=== PATIENT | male | born 1945 | race Caucasian/White ===

== ENCOUNTER 2021-02-23 16:03 | Emergency (ER) | payer MEDICARE, SELFPAY ==
[2021-02-23 16:04] VITALS: BP 151/98; PULSE 93; RESP 18; TEMP 36.7; O2SAT 97; BMI 29.7
--- NOTE | 2021-02-23 16:18 | XR_ITS ---
PROCEDURE: XR HAND RT MIN 3V CLINICAL INDICATION: LACERATION COMPARISON: No exams were available for comparison FINDINGS: No fracture or dislocation. No lytic or blastic change. There is normal mineralization. 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 Subchondral cystic changes involve the distal aspect of the middle phalanx of the 3rd digit. A small defect is also present in the distal and lateral aspect of the middle phalanx of the 4th digit and could be due to marginal erosion. Possible marginal erosion involves the distal aspect of proximal phalanx of thumb. Other findings:None. IMPRESSION: Degenerative changes as described above, no acute fracture. Dictated by: Bob Birmingham MD 02/23/2021 16:35 Bob Birmingham MD in [place] 02/23/2021 16:35
[2021-02-23 16:20] VITALS: BP 151/98; PULSE 93; RESP 18; TEMP 36.7; O2SAT 97; BMI 29.5
--- NOTE | 2021-02-23 16:46 | HMH.EDUTC ---
[facility] [place] Clinical Impression: Laceration Disposition: Home, Self-Care Condition on Discharge: Good Instructions: How to Care for a Laceration After Repair, DI for Laceration Repair, DI for Laceration Repair -- Simple Additional Instructions: Suture instructions: You have required stitches today. Please read the following instructions so you know how to care for them: 1. Keep wound area dry for the first 24 hours. 2 May clean gently with mild soap and water, after 48 hours to prevent crusting over suture knots. 3. You may shower if your provider gives permission but do not take a bath until the skin is healed.. 4. Never leave a wet dressing or Band-Aid on your stitches as this allows bacteria to reach the area and may cause infection. Band-aids can cause the wound to sweat and not recommended to wear for long periods of time Watch for signs of infection: Increasing redness, tenderness or warmth around the suture site Unusual swelling around the site Appearance of pus around each suture or any red streaks Fever If you develop any of the above signs or symptoms of infection, Follow up with Family Physician immediately 5. Suture removal in _10-14___days 6. Return to [facility] or follow up with family doctor for removal. This can be done by any medical provider during regular hours on Sunday through Sunday, by appointment. Prescriptions: Amoxicillin/Potassium Clav [Augmentin 500mg tab] 1 tab PO BID 5 Days #10 tab Prescription Printed Referrals: Florence Garcia [Primary Care Provider] - As needed Time of Disposition: 17:34 Medical Decision Making - Rodney Inquiry Pt receiving controlled substance: No Rodney was queried for this patient: No Vital Signs: 02/23/21 16:04 02/23/21 16:20 02/23/21 17:46 Temperature 98.0 F 98.0 F 98.0 F Temperature Source Oral Oral Pulse Rate 93 H Pulse Rate [Right] 93 H 93 H Respiratory Rate 18 18 18 Blood Pressure 151/98 H Blood Pressure [Right Arm] 151/98 H 151/98 H Blood Pressure Mean [Right Arm] 115 115 Blood Pressure Source [Right Arm] Automatic Cuff Blood Pressure Position [Right Arm] Sitting 02 Sat by Pulse Oximetry 97 97 Oxygen Delivery Method Room Air Room Air - Radiology Data #1 Image(s): Hand Image Reviewed: Yes I have reviewed radiologist's interpretation IMPRESSION: Degenerative changes as described above, no acute fracture. [facility] [place] HPI - General Stated complaint: a/o 02/23 1530 right middle finger laceration Time Seen by Provider: 02/23/21 16:46 Mode of Arrival: Ambulatory Source of Information: Patient Limitations: No Limitations Description of Symptoms (Recalled from Triage Doc. by RN): PATIENT C/O RIGHT HAND LACERATION MIDDLE DIGIT. BLEEDING CONTROLLED UPON ARRIVAL. 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 PT REPORTS HE HAD A TETANUS SHOT TWO YEARS AGO. HEENT Symptoms (Recalled from RN notes): No Resp Symptoms (Recalled from RN notes): No Skin Symptoms (Recalled from RN notes): Yes MS Symptoms (Recalled from RN notes): No Functional Status (Recalled from RN notes): WNL - History of Present Illness Provider Complaint: Patient state that he was using a grinder operator automatic and it slipped and hit him in the knuckle in the right middle finger causing laceration State that he is able to move and bend the finger and denies numbness and tingling in finger. able to bend and straighten finger States that he had a tetanus about 2 yrs ago - Related Data Previous Rx's Medication Instructions Recorded Amoxicillin/Potassium Clav 1 tab PO BID 5 Days #10 tab 02/23/21 [Augmentin 500mg tab] Allergies Allergy/AdvReac Type Severity Reaction Status Date / Time No Known Allergies Allergy Unverified 09/25/17 14:46 - Worker's Comp Is this a Worker's Comp case?: No [facility] History - Hepatitis A Screen Drug use history?: No High risk sexual behaviors?: No History of sexually transmitted infection?: No Currently employed
[2021-02-23 17:46] VITALS: BP 151/98; PULSE 93; RESP 18; TEMP 36.7; O2SAT 97
== END 2021-02-23 17:50 | disposition home or self-care (01) ==
PROVIDERS: Emergency Provider Nurse Practitioner; PCP Family Medicine
DX: S61.212A Laceration without foreign body of right middle finger without damage to nail, initial encounter (principal); W31.89XA Contact with other specified machinery, initial encounter; Y92.018 Other place in single-family (private) house as the place of occurrence of the external cause
CPT/HCPCS: 12002; G0463; 73130; 99202

== ENCOUNTER 2021-03-10 13:54 | Emergency (ER) | payer MEDICARE, SELFPAY ==
[2021-03-10 14:00] VITALS: BP 146/84; PULSE 102; RESP 18; TEMP 36.7; O2SAT 98; BMI 25.0
[2021-03-10 14:05] VITALS: BP 146/84; PULSE 102; RESP 18; TEMP 36.7; O2SAT 98
== END 2021-03-10 14:07 | disposition home or self-care (01) ==
LOC: UTC 13:57
DX: S61.212D Laceration without foreign body of right middle finger without damage to nail, subsequent encounter (principal)

== ENCOUNTER 2022-05-17 19:43 | Emergency (ER) | payer MEDICARE, SELFPAY ==
[2022-05-17 21:01] VITALS: BP 147/95; PULSE 74; RESP 18; TEMP 36.8; O2SAT 97; BMI 27.4
--- NOTE | 2022-05-17 21:21 | HMH.EDEYEP ---
ED Disposition Clinical Impression: Corneal FB (foreign body) Qualifiers: Encounter type: initial encounter Laterality: left Qualified Code(s): T15.02XA - Foreign body in cornea, left eye, initial encounter Disposition: Home, Self-Care Condition on Discharge: Good Instructions: DI for Corneal Foreign Body-Eye Additional Instructions: use meds and call eye center in am [phone] Referrals: Florence Garcia [Primary Care Provider] - - Critical Care Critical Care Time: No Attestation: On 05/17/22, the high probability of a clinically significant, sudden or life threatening deterioration of the following system(s) required my full and direct attention, intervention and personal management. The time I documented below is in addition to time spent performing reported procedures but includes the following listed in this critical care notation. Medical Decision Making - Medical Records Medical records reviewed: Yes: I reviewed the patient's medical records. - Rodney Inquiry Pt receiving controlled substance: No Vital Signs: 05/17/22 21:01 Temperature 98.2 F Temperature Source Oral Pulse Rate [Apical] 74 Respiratory Rate 18 Blood Pressure [Right Arm] 147/95 H Blood Pressure Mean [Right Arm] 112 Blood Pressure Source [Right Arm] Automatic Cuff Blood Pressure Position [Right Arm] Sitting 02 Sat by Pulse Oximetry 97 Oxygen Delivery Method Room Air Medical Decision Narrative: has fb and partially removed but has rust ring Eye Problem HPI - General Chief complaint: Eye Problems Stated complaint: AO 05/17@1630@home fb L eye Time Seen by Provider: 05/17/22 21:21 Mode of Arrival: Ambulatory Source of Information: Patient, Medical Record Limitations: No Limitations Description of Symptoms (Recalled from ER Triage Doc. by RN): Per pt, at approx 1630 he was grinding a bolt while working on his truck when he got a foreign object into his left eye. States that it feels as though there is a piece of metal under his eye lid. States that his eye does not hurt when it is open, only hurts when he blinks. Pt states last tetanus was 1 year ago. - History of Present Illness HPI Narrative: fb sensation lt eye after grinding at home - tetanus ok - MD chief complaint: foreign body Onset (ago): hour(s) Location: left eye Eye Symptoms: foreign body sensation Place: home Mechanism: occurred while hammering/grinding Severity: moderate Associated symptoms: none Treatments Prior to Arrival: none - Related Data Patient tetanus UTD: Yes Previous Rx's Medication Instructions Recorded Amoxicillin/Potassium Clav 1 tab PO BID 5 Days #10 tab 02/23/21 [Augmentin 500mg tab] Allergies Allergy/AdvReac Type Severity Reaction Status Date / Time No Known Allergies Allergy Unverified 09/25/17 14:46 [facility] History - Hepatitis A Screen Attestation statement:: This patient has been screened for Hepatitis A risk factors. I have reviewed the patient's past medical history: Yes - Social History Alcohol Intake: never Occupational Status: other ROS Obtained: Yes All systems reviewed & no additional complaints - Constitutional Constitutional: Denies fever(s) - Eyes Eyes: Reports as per HPI, Denies eye discharge, Denies loss of peripheral vision, Reports sensitivity to light, Denies photophobia - ENT Ears, Nose, Mouth, and Throat: Denies otalgia - Cardiovascular Cardiovascular: Denies chest pain - Respiratory Respiratory: Denies shortness of breath - Gastrointestinal Gastrointestingal: Denies: abdominal pain - Genitourinary Male Genitourinary: Denies hematuria - Musculoskeletal Musculoskeletal: Denies joint pain - Integumentary/Breasts Skin/Breast: Denies rash - Neurologic Neurologic: Denies headache(s), Denies seizure-like activity Physical Exam - General General appearance: alert - Head Head exam: normocephalic - Eye Eye exam: Present: PERRL, EOMI, other (fb lt eye - no
[2022-05-17 21:33] VITALS: BP 145/95; PULSE 72; RESP 18; TEMP 36.8; O2SAT 99
== END 2022-05-17 21:34 | disposition home or self-care (01) ==
PROVIDERS: Emergency Provider Emergency Medicine; PCP Family Medicine
DX: T15.02XA Foreign body in cornea, left eye, initial encounter (principal)
CPT/HCPCS: 99283

== ENCOUNTER 2024-11-06 10:36 | Emergency (ER) | payer MEDICARE, SELFPAY ==
--- NOTE | 2024-11-06 11:17 | ED_ITS ---
Discharge Plan Disposition Patient Disposition: Home, Self-Care Condition: Good Prescriptions Prescriptions: New azithromycin [Zithromax] 250 mg tablet 250 mg PO UD DOSE PK Qty: 6 0RF Rx Instructions: Take two (2) tablets today, then one (1) tablet days #2 thru #5 benzonatate 100 mg capsule 100 mg PO TIDP PRN (Reason: Cough) Qty: 30 0RF methylprednisolone 4 mg Tablets,Dose Pack 4 mg PO DIRECTED 6 Days Qty: 21 0RF Rx Instructions: Take 1 pack as directed for 6 days oseltamivir [Tamiflu] 75 mg capsule 75 mg PO BID 5 Days Qty: 10 0RF No Action levothyroxine 88 mcg Tablet 88 mcg PO DAILY tamsulosin 0.4 mg Capsule 0.4 mg PO DAILY omeprazole 20 mg Capsule,Delayed Release(Dr/Ec) 20 mg PO BID amlodipine-benazepril 10-40 mg Capsule 1 cap PO DAILY Referrals Follow up/Referrals: Florence Garcia [Primary Care Provider] - See instructions Activity Restrictions/Add. Instructions Additional Instructions/Restrictions: Drink plenty of fluids. Take tylenol or ibuprofen for pain or fever. Take the medications as directed. Follow up with your regular doctor. GO TO THE ER FOR ANY WORSENING SYMPTOMS Clinical Impressions Clinical Impression: Acute bronchitis, Acute sinusitis, Influenza A Instructions Patient Instructions: Sinusitis, DI for Sinusitis Print Language Print Language: Estonian Discharge ED Provider: Jayjay Chamberlain [facility] [place] General Stated complaint: cough, chills, fever Time Seen by Provider: 11/06/24 11:11 Related Data Home Medications ?Medication ?Instructions ?Recorded ?Confirmed amlodipine 10 mg-benazepril 40 mg 1 cap PO DAILY 11/06/24 11/06/24 capsule levothyroxine 88 mcg tablet 88 mcg PO DAILY 11/06/24 11/06/24 omeprazole 20 mg capsule,delayed 20 mg PO BID 11/06/24 11/06/24 release tamsulosin 0.4 mg capsule 0.4 mg PO DAILY 11/06/24 11/06/24 Previous Rx's ?Medication ?Instructions ?Recorded azithromycin 250 mg tablet 250 mg PO UD DOSE PK #6 tabs 11/06/24 (Zithromax) benzonatate 100 mg capsule 100 mg PO TIDP PRN Cough #30 caps 11/06/24 methylprednisolone 4 mg tablets in 4 mg PO DIRECTED 6 days #21 tabs 11/06/24 a dose pack oseltamivir 75 mg capsule (Tamiflu) 75 mg PO BID 5 days #10 caps 11/06/24 Allergies Allergy/AdvReac Type Severity Reaction Status Date / Time No Known Allergies Allergy Unverified 09/25/17 14:46 [facility] Disclaimer: The information contained in this section may have been updated after the patient was seen, as this information can be updated by other users. Social History Smoking Status: Never smoker alcohol intake: never current occupational status: other Travel in the last 8 weeks: None ROS Obtained: Yes All systems reviewed & no additional complaints except as documented Constitutional Constitutional: Reports chills and Reports fever(s) Eyes Eyes: Denies eye discharge ENT Ears, Nose, Mouth, and Throat: Reports as per HPI Cardiovascular Cardiovascular: Denies chest pain Respiratory Respiratory: Denies chest congestion and Reports cough Gastrointestinal Gastrointestingal: Reports nausea; Denies abdominal pain, constipation, cramping, diarrhea or vomiting Musculoskeletal Musculoskeletal: Denies arthralgias Integumentary/Breasts Skin/Breast: Denies rash Neurologic Neurologic: Denies paresthesias Physical Exam General General appearance: alert and in no apparent distress Head Head exam: atraumatic, normocephalic and normal inspection Eye Eye exam: Present normal appearance, PERRL and EOMI ENT ENT exam: Present mucous membranes moist and normal external ear exam Expanded ENT Exam TM/Canal exam: Bilateral TM: erythema and bulging Nose exam: Absent sinus tenderness Mouth exam: Present normal external inspection; Absent drooling Teeth exam: Present normal inspection Throat exam: Present tonsillar erythema, tonsillomegaly and tonsillar exudate Neck Neck exam: Present normal inspection, full ROM and trachea midline; Absent tenderness, meningismus or lymphadenopathy Chest Chest inspection: Present normal inspection and symmetric chest wall rise; Absent tenderness Respiratory Respiratory exam: Present normal lung sounds bilaterally; Absent respiratory distress, wheezes, stridor or accessory muscle use Cardiovascular Cardiovascular exam: Present regular rate and normal rhythm; Absent systolic murmur or diastolic murmur Abdominal Exam Abdominal exam: Present soft and normal bowel sounds; Absent distention, tenderness, guarding, rebound or rigidity Extremities Exam Extremities exam: Present normal inspection and normal capillary refill; Absent calf tenderness Back Exam Back exam: Present normal inspection and full ROM; Absent tenderness, CVA tenderness (R) or CVA tenderness (L) Neurological Exam Neurological exam: Present alert, oriented X3 and CN II-XII intact Psychiatric Psychiatric exam: Present normal affect and normal mood Skin Skin exam: Present warm, dry, intact and normal color Medical Decision Making Medical Records Medical records reviewed: No I reviewed the patient's medical records. Screening: Per USPSTF and CDC recommendations, given the prevalence of disease in our region, it is our hospital?s policy to screen for HIV and viral Hepatitis for all patients aged 18 and over and those with ongoing risk factors. Rodney Inquiry Pt receiving controlled substance: No Lab Data Lab results reviewed: Yes I reviewed the patient's lab results.
[2024-11-06 11:20] LABS: UTC Influenza A Antigen Negative (Negative); UTC Influenza B Antigen Negative (Negative)
[2024-11-06 11:21] VITALS: BP 156/82; PULSE 121; RESP 18; TEMP 37.1; O2SAT 95; BMI 29.7
--- NOTE | 2024-11-06 11:22 | XR_ITS ---
FINAL REPORT TECHNIQUE: Chest PA & Lateral CLINICAL HISTORY: Nonspecific cough COMPARISON: None FINDINGS: 2 views of the chest were performed. The heart size is normal. The mediastinum is within normal limits. There is no acute cardiopulmonary process. There are no pleural effusions. There is no pneumothorax. The bony thorax appears intact. IMPRESSION: No acute cardiopulmonary process. Reviewed, Interpreted and Dictated by Mateo Foreman MD Transcribed by Kaci Wang Authenticated and [facility]
[2024-11-06 12:10] VITALS: BP 156/82; PULSE 121; RESP 18; TEMP 37.1
[2024-11-06 12:19] LABS: Coronavirus 19, PCR Not Detected (NotDetected); Influenza B, PCR Not Detected (NotDetected)
[2024-11-06 14:42] LABS: Influenza A, PCR Detected (NotDetected)
== END 2024-11-06 12:11 | disposition home or self-care (01) ==
PROVIDERS: Emergency Provider Nurse Practitioner Family; PCP Family Medicine
DX: J20.9 Acute bronchitis, unspecified (principal); J01.90 Acute sinusitis, unspecified; J09.X2 Influenza due to identified novel influenza A virus with other respiratory manifestations
CPT/HCPCS: 71046; 87636; 87804; 99212; G0381

== ENCOUNTER 2024-12-26 14:42 | Emergency (ER) | payer MEDICARE, SELFPAY ==
[2024-12-26] VITALS (8 sets, daily range): BP systolic 127–145; BP diastolic 75–81; PULSE 66–90; RESP 16–25; TEMP 36.6; O2SAT 94–100; BMI 29.0
--- NOTE | 2024-12-26 14:55 | ECG_ITS ---
APPROVED REPORT Exam: Resting ECG HR:88 bpm ECG Measurements Heart Rate 88 AXES AZ 155 P 49 QRSd 82 QRS 13 QT 335 T 73 QTc 380 Conclusion SINUS RHYTHM NONSPECIFIC T-WAVE ABNORMALITY No STEMI Electronically signed by : YURIY NGUYEN, 12/26/2024 23:20:19
--- NOTE | 2024-12-26 15:17 | [facility].EDGENADL ---
Discharge Plan Disposition Patient Disposition: Home, Self-Care Condition: Good Prescriptions Prescriptions: New aspirin 81 mg tablet,delayed release (DR/EC) 81 mg PO DAILY Qty: 30 0RF atorvastatin 40 mg tablet 40 mg PO HS Qty: 30 0RF No Action levothyroxine 88 mcg Tablet 88 mcg PO DAILY tamsulosin 0.4 mg Capsule 0.4 mg PO DAILY omeprazole 20 mg Capsule,Delayed Release(Dr/Ec) 20 mg PO BID amlodipine-benazepril 10-40 mg Capsule 1 cap PO DAILY azithromycin [Zithromax] 250 mg tablet 250 mg PO UD DOSE PK Qty: 6 0RF Rx Instructions: Take two (2) tablets today, then one (1) tablet days #2 thru #5 benzonatate 100 mg capsule 100 mg PO TIDP PRN (Reason: Cough) Qty: 30 0RF methylprednisolone 4 mg Tablets,Dose Pack 4 mg PO DIRECTED 6 Days Qty: 21 0RF Rx Instructions: Take 1 pack as directed for 6 days oseltamivir [Tamiflu] 75 mg capsule 75 mg PO BID 5 Days Qty: 10 0RF Referrals Follow up/Referrals: Modesto Pierce MD [Staff Physician] - See instructions Florence Garcia [Primary Care Provider] - See instructions Sandro Franco MD [Staff Physician] - See instructions Activity Restrictions/Add. Instructions Additional Instructions/Restrictions: You were evaluated in the emergency department today. As we discussed, you have some narrowing of the blood vessels that go to your brain which increases your risk of stroke. We discussed the risk versus benefit of starting aspirin and statin here in the emergency department, and you elected to go ahead and start it. Certainly if you develop any blood in your stool or dark tarry stools, I would recommend holding the aspirin. Please follow-up closely with your primary care provider over the next week. Also recommend close follow-up with cardiology given your lightheadedness. Return to the emergency department right away for new or worsening symptoms. Clinical Impressions Clinical Impression: Intracranial atherosclerosis, Lightheadedness Instructions Patient Instructions: Preventive Cardiology: Aspirin, Atorvastatin, DI for Dizziness-Nonvertigo Print Language Print Language: [place] Citizen Discharge ED Provider: Lucy James General Adult HPI General Chief complaint: Dizziness Stated complaint: dizziness Time Seen by Provider: 12/26/24 14:59 Mode of Arrival: Ambulatory Source of Information: Patient Description of Symptoms (Recalled from ER Triage Doc. by RN): Pt presents for evaluation that started this AM when he got up at 0600 today. Pt states he has a hx of intermittent dizziness, and usually it goes away on its own but today it has not. History of Present Illness HPI narrative: This patient is a 79-year-old male with hypertension, hypothyroidism, GERD presenting with department for evaluation of concern for dizziness. Patient describes it as lightheadedness and feeling like he is going to pass out. He denies any sensation that the room is spinning. He also denies any neurologic symptoms, such as headache, visual disturbance, gait instability, balance issues, numbness, tingling, unilateral weakness, or other concerns. He states that he has intermittently had dizziness for quite some time. The symptoms seem to be worse since this morning at 6am. His recalls that when he wakes up in the middle of the night bathroom, he has to sit on the edge of the bed for a bit before getting up because of the lightheadedness. Nothing seems to trigger these symptoms, they do not seem exacerbated by changes in position. The symptoms hit him randomly. He denies any associated fever, cough, shortness of breath, chest pain, abdominal pain, nausea, movements, vomiting, changes in bowel movements, or other concerns. He also denies recent changes in medication. Related Data Home Medications ?Medication ?Instructions ?Recorded ?Confirmed amlodipine 10 mg-benazepril 40 mg 1 cap PO DAILY 11/06/24 11/06/24 capsule levothyroxine 88 mcg tablet 88 mcg PO DAILY 11/06/24 11/06/24 omeprazole 20 mg capsule,delayed 20 mg PO BID 11/06/24 11/06/24 release tamsulosin 0.4 mg capsule 0.4 mg PO DAILY 11/06/24 11/06/24 Previous Rx's ?Medication ?Instructions ?Recorded azithromycin 250 mg tablet 250 mg PO UD DOSE PK #6 tabs 11/06/24 (Zithromax) benzonatate 100 mg capsule 100 mg PO TIDP PRN Cough #30 caps 11/06/24 methylprednisolone 4 mg tablets in 4 mg PO DIRECTED 6 days #21 tabs 11/06/24 a dose pack oseltamivir 75 mg capsule (Tamiflu) 75 mg PO BID 5 days #10 caps 11/06/24 aspirin 81 mg tablet,delayed 81 mg PO DAILY #30 tabs 12/26/24 release atorvastatin 40 mg tablet 40 mg PO HS #30 tabs 12/26/24 Allergies Allergy/AdvReac Type Severity Reaction Status Date / Time No Known Allergies Allergy Unverified 09/25/17 14:46 [facility] Disclaimer: The information contained in this section may have been updated after the patient was seen, as this information can be updated by other users. Social History Smoking Status: Former smoker alcohol intake: never current occupational status: other Travel in the last 8 weeks: None Have you lived/traveled outside US in past 30 days?: No Contact w/someone who lives/traveled outside US past 30 days?: No Exposure to someone with infectious disease in past 14 days?: No Do you have a fever (greater than 100.4 F or 38 C)?: No Have you tested positive for COVID-19: No Exposed to someone with COVID-19 in past 14 days?: No Do you have a sore throat?: No Do you have a cough?: No Do you have any weakness?: Yes Do you have any diarrhea?: No Are you experiencing any unusual bleeding?: No Do you have any muscle aches/pain?: No Do you have any abdominal pain?: No Are you experiencing loss of taste or smell?: No Other Medical History Have you received the Flu Vaccine for this season: Yes Have you received the Pneumonia Vaccine: Yes ROS Obtained: Yes All systems reviewed & no additional complaints except as documented Physical Exam General General appearance: alert and in no apparent distress Head Head exam: atraumatic and normocephalic Eye Eye exam: Present normal appearance, PERRL and EOMI ENT ENT exam: Present normal exam, normal oropharynx, mucous membranes moist and normal external ear exam Neck Neck exam: Present normal inspection, full ROM and trachea midline; Absent tenderness Chest Chest inspection: Present normal inspection and symmetric chest wall rise; Absent tenderness Respiratory Respiratory exam: Present normal lung sounds bilaterally; Absent respiratory distress, wheezes, stridor or accessory muscle use Cardiovascular Cardiovascular exam: Present regular rate and normal rhythm Abdominal Exam Abdominal exam: Present soft; Absent distention, tenderness or guarding Extremities Exam Extremities exam: Present normal inspection, full ROM and normal capillary refill; Absent tenderness or edema Back Exam Back exam: Present normal inspection and full ROM; Absent tenderness Neurological Exam Neurological exam: Present alert, oriented X3, CN II-XII intact and normal gait; Absent motor sensory deficit Psychiatric Psychiatric exam: Present normal affect and normal mood Skin Skin exam: Present warm and dry Medical Decision Making Medical Records Medical records reviewed: Yes I reviewed the patient's medical records. Screening: Per USPSTF and CDC recommendations, given the prevalence of disease in our region, it is our hospital?s policy to screen for HIV and viral Hepatitis for all patients aged 18 and over and those with ongoing risk factors. Rodney Inquiry Pt receiving controlled substance: No Vital Signs: 12/26/24 14:45 12/26/24 15:10 12/26/24 15:12 Temperature 97.9 F Temperature Source Oral Pulse Rate Pulse Rate [Orthostatic Lying Left Radial] Pulse Rate [Orthostatic Sitting Left Radial] Pulse Rate [Orthostatic Standing Left Radial] Pulse Rate [Right] 89 Respiratory Rate 18 22 22 Blood Pressure 135/76 134/80 Blood Pressure [Orthostatic Lying Right Arm] Blood Pressure [Orthostatic Sitting Right Arm] Blood Pressure [Orthostatic Standing Right Arm] Blood Pressure [Right Arm] 135/77 Blood Pressure Mean 104 101 Blood Pressure Mean [Right Arm] 96 02 Sat by Pulse Oximetry 100 Oxygen Delivery Method Room Air 12/26/24 15:25 12/26/24 15:30 12/26/24 16:00 Temperature Temperature Source Pulse Rate 82 83 Pulse Rate [Orthostatic Lying Left Radial] 77 Pulse Rate [Orthostatic Sitting Left Radial] 85 Pulse Rate [Orthostatic Standing Left Radial] 90 Pulse Rate [Right] Respiratory Rate 25 H Blood Pressure 127/79 127/81 Blood Pressure [Orthostatic Lying Right Arm] 135/76 Blood Pressure [Orthostatic Sitting Right Arm] 134/80 Blood Pressure [Orthostatic Standing Right Arm] 136/75 Blood Pressure [Right Arm] Blood Pressure Mean 86 96 Blood Pressure Mean [Right Arm] 02 Sat by Pulse Oximetry 94 L 96 Oxygen Delivery Method 12/26/24 16:22 12/26/24 17:51 Temperature 97.9 F Temperature Source Pulse Rate 77 66 Pulse Rate [Orthostatic Lying Left Radial] Pulse Rate [Orthostatic Sitting Left Radial] Pulse Rate [Orthostatic Standing Left Radial] Pulse Rate [Right] Respiratory Rate 19 16 Blood Pressure 127/81 145/80 H Blood Pressure [Orthostatic Lying Right Arm] Blood Pressure [Orthostatic Sitting Right Arm] Blood Pressure [Orthostatic Standing Right Arm] Blood Pressure [Right Arm] Blood Pressure Mean Blood Pressure Mean [Right Arm] 02 Sat by Pulse Oximetry 94 L Oxygen Delivery Method Room Air Lab Data Lab results reviewed: Yes I reviewed the patient's lab results. Lab Results 12/26/24 15:19: WBC 9.5, RBC 5.67, Hgb 16.0, Hct 48.2, MCV 85.0, MCH 28.2, MCHC 33.2, RDW 13.2, Plt Count 181, MPV 9.2, Neut % (Auto) 62.3, Lymph % (Auto) 19.3, [place] % (Auto) 8.2, Eos % (Auto) 9.3, Baso % (Auto) 0.6, Neut # (Auto) 5.9, Lymph # (Auto) 1.8, [place] # (Auto) 0.8, Eos # (Auto) 0.9 H, Baso # (Auto) 0.1, D-Dimer 0.57 H, Sodium 138, Potassium 4.0, Chloride 105, Carbon Dioxide 28, Anion Gap 9.0, BUN 14, Creatinine 1.10, Estimated Creat Clear 65, Estimated GFR 65, Est GFR ( Amer) 79, Glucose 99, Calcium 9.1, Phosphorus 2.8, Magnesium 2.0, Total Bilirubin 0.5, AST 32, ALT 32, Alkaline Phosphatase 101, Total Creatine Kinase 69, Troponin I < 0.01, NT-Pro-B Natriuret Pep < 20.0, Total Protein 7.0, Albumin 4.3, Globulin 2.7, Albumin/Globulin Ratio 1.6, TSH 4.35, Thyroxine (T4) 10.4, HCV Ab LUIS w/Rflx PCR Qn Negative, HIV Ag/Ab Combo Qual Negative 12/26/24 15:23: VBG pH 7.39, VBG pCO2 40.3, VBG pO2 50.8 H, VBG HCO3 24.0, VBG Total CO2 25.2, VBG O2 Saturation 84.8 H, VBG Base Excess -1.0, VBG Lactic Acid 1.4 12/26/24 15:19 12/26/24 15:19 Orders (Tests/Meds): ED MEDICATIONS Discontinued Medications Generic Name Dose Route Start Last Admin Trade Name Freq PRN Reason Stop Dose Admin Lactated Ringer's 1,000 mls @ 999 mls/hr 12/26/24 15:54 12/26/24 15:57 Lactated Ringer's 1000 Ml Bag IV 12/26/24 16:54 999 mls/hr .Q1H1M ONE Administration Iopamidol 155 ml 12/26/24 16:15 12/26/24 16:16 Iopamidol-370 (76%);100ml Bottle IV 12/26/24 16:16 155 ml ONCE ONE Administration Sodium Chloride 10 ml 12/26/24 16:15 12/26/24 16:16 Sodium Chloride 0.9% 10ml Syr (Rad Only) IV 01/25/25 16:14 10 ml NEEDED PRN Administration Maintain IV Site Sodium Chloride 50 ml 12/26/24 16:15 12/26/24 16:16 0.9 % Sodium Chloride 50 Ml Vial IV 12/26/24 16:16 50 ml ONCE ONE Administration ORDERS Category Date Time Status CT angio chest PE protocol Stat Cat Scan 12/26/24 15:[address] angio head Stat Cat Scan 12/26/24 15:[address] angio neck Stat Cat Scan 12/26/24 15:[address] head/brain wo con Stat Cat Scan 12/26/24 15:54 Completed BNP [NT Pro Brain Natriuretic Pep.] Stat Lab 12/26/24 15:19 Completed CK [Creatine Kinase] Stat Lab 12/26/24 15:19 Completed Complete Blood Count Auto Diff Stat Lab 12/26/24 15:19 Completed Comprehensive Metabolic Panel Stat Lab 12/26/24 15:19 Completed D-Dimer Stat Lab 12/26/24 15:19 Completed HIV Combo Stat Lab 12/26/24 15:19 Completed Hepatitis C Ab Qual. W/ RFX Stat Lab 12/26/24 15:19 Completed MAG [Magnesium] Stat Lab 12/26/24 15:19 Completed PHOS [Phosphorous] Stat Lab 12/26/24 15:19 Completed T4 (Thyroxine) Stat Lab 12/26/24 15:19 Completed TSH [Thyroid Stimulating Hormone] Stat Lab 12/26/24 15:19 Completed Trop I [Troponin I] Stat Lab 12/26/24 15:19 Completed Troponin I Q3H Lab 12/26/24 21:15 Ordered VBG [Venous Blood Gas] Stat RT 12/26/24 15:23 Completed ECG Data Tracing #1: I reviewed this ECG and interpreted as documented below: Normal sinus rhythm with a ventricular rate of 88 beats per minuite. No acute ST changes concerning for ischemia. Normal intervals. ECG initial impression date: 12/26/24 ECG initial impression time: 14:28 Medical Decision Narrative: In summary, this patient is a 79 year old male presenting to the Emergency Department for evaluation of lightheadedness and presyncope that has been going on quite some time but is worse since this morning. Differential diagnoses considered include but are not limited to orthostatic hypotension, medication adverse reaction, ACS, CHF, PE, electrolyte derangements, dehydration, CHELSIE. Ruling out the most morbid conditions drove assessment. It should be noted patient's history includes HTN, GERD, hypothyroidism which may or may not be at goal therapy. This complicates all aspects of care by increasing patient's risk for morbidity. On exam, the patient is sitting upright in no acute distress with reassuring vital signs on cardiac telemetry. He has normal orthostatic vital signs. he is neurologically intact without focal deficit. Cardiopulmonary and abdominal exams are benign. Workup included broad lab evaluation to evaluate for infectious, metabolic, cardiac derangements. I feel PE is low likelihood based on Wells score, but cannot exclude using PERC criteria given age, so will obtain D-dimer. EKG is reassuring. On reassessment, the patient is lying in bed in no acute distress. He was given a bolus of IV fluids, and he states that he is feeling a lot better after that. Labs are reassuring with reassuring CBC with no significant leukocytosis or anemia, reassuring chemistry with normal kidney function, electrolytes, negative troponin, negative BNP. His D-dimer was mildly elevated, and given his presyncope and lightheadedness, I elected to obtain CT PE protocol. I also elected to obtain CT head without contrast as well as CT angiograms of the head and neck to evaluate for possible stenosis/occlusion of any intracranial vessels that could lead to the symptoms. I independently interpreted CT scans prior to radiology read and noted no large vessel occlusion, no large space-occupying lesion in the brain or intracranial hemorrhage, no large PE or pneumonia. He does have atherosclerosis. Please radiology read for final interpretation. At this time, feel the patient does not have any acute life-threatening pathology that would require admission to the hospital for further workup and management, but I do feel that he likely had lightheadedness related to poor oral intake of fluids, especially given that his symptoms improved after fluid resuscitation. I also feel that he could have some exacerbation of symptoms related to his atherosclerosis. Patient is not on aspirin or statin currently. Given his atherosclerosis, I feel that he would likely benefit from these to help mitigate his risk factor for stroke. He does note a history of hiatal hernia with some gastritis in the past, so we discussed the risk versus benefit of starting aspirin including risk of potential GI bleeding. He would like to proceed with aspirin, understanding precautions/risk. He also is not currently on a cholesterol medication, so I did start him on atorvastatin. I advised that he follow-up very closely with his primary care provider and let them know about these new medications, so that they can monitor him for any issues/side effects. I also recommended that he follow-up for cardiology for further evaluation given his lightheadedness and no prior history of cardiac evaluation at his age. He expressed understanding and agreement. Patient was discharged in stable condition with prescription for aspirin and atorvastatin, instructions for close follow-up with primary care and cardiology, and very strict return precautions. Critical Care Critical Care Time Critical Care Time: No
[2024-12-26 15:31] LABS: Lactate Venous 1.4 mmol/L (0.4-2.0); VBG Oxygen Saturation 84.8 % (50-70); VBG PCO2 40.3 mmol/L (35-51); VBG PH 7.39 mmol/L (7.31-7.41); VBG PO2 50.8 mmol/L (28-40); VBG Total CO2 25.2 mmol/L (23-27)
[2024-12-26 15:31] LABS: Basophils # 0.1 K/mm3 (0-0.2); Basophils % 0.6 % (0.1-2.0); Eosinophils # 0.9 K/mm3 (0.0-0.4); Eosinophils % 9.3 % (0.1-12.0); Hematocrit 48.2 % (42.0-52.0); Lymphocytes # 1.8 K/mm3 (0.7-4.5); Lymphocytes % 19.3 % (10-50); Mean Corpuscular HGB Conc 33.2 g/dL (31.8-35.4); Mean Corpuscular Hemoglobin 28.2 pg (27.0-31.2); Mean Platelet Volume 9.2 fl (7.4-10.4); Monocytes # 0.8 K/mm3 (0.1-1.0); Monocytes % 8.2 % (1.7-9.3); Neutrophils # 5.9 K/mm3 (1.8-7.8); Neutrophils % 62.3 % (37.0-80.0); Platelet Count 181 K/mm3 (142-424); Red Blood Count 5.67 M/mm3 (4.60-6.20); Red Cell Distribution Width 13.2 % (11.5-17.5); White Blood Count 9.5 K/mm3 (4.8-10.8)
[2024-12-26 15:33] LABS: Albumin Level 4.3 g/dl (3.5-5.0); Chloride 105 mmol/L (98-107); Sodium 138 mmol/L (136-145)
[2024-12-26 15:36] LABS: Alanine Aminotransferase 32 U/L (12-78); Albumin/Globulin Ratio 1.6 (1.1-1.8); Alkaline Phosphatase 101 U/L (38-126); Aspartate Amino Transferase 32 U/L (17-59); Bilirubin,Total 0.5 mg/dl (0.2-1.3); Blood Urea Nitrogen 14 mg/dl (9-20); Calcium 9.1 mg/dl (8.4-10.2); Carbon Dioxide 28 mmol/L (22.0-30.0); Creatinine Clearance Estimated 65 mL/min (50-200); Estimated Glomerular Filt Rate 65 ml/min (>60); GFR (African American) 79 ML/MIN (>60); Globulin 2.7 g/dL (1.3-3.2); Glucose 99 mg/dl (74-100)
[2024-12-26 15:41] LABS: D-Dimer 0.57 ug/mL (0.0-0.5)
[2024-12-26 15:46] LABS: Creatine Kinase 69 U/L (55-170); Phosphorous 2.8 mg/dl (2.5-4.5)
--- NOTE | 2024-12-26 15:54 | CT_ITS ---
PROCEDURE INFORMATION: Exam: CTA Neck With Contrast Exam date and time: 12/26/2024 4:11 PM Age: 79 years old Clinical indication: Other: Lightheaded, presyncope TECHNIQUE: Imaging protocol: Computed tomographic angiography of the neck with contrast. Exam focused on the cervical segments of the vasculature. 3D rendering (Not supervised by radiologist): MIP and/or 3D reconstructed images were created by the technologist. Radiation optimization: All CT scans at this facility use at least one of these dose optimization techniques: automated exposure control; mA and/or kV adjustment per patient size (includes targeted exams where dose is matched to clinical indication); or iterative reconstruction. Contrast material: ISOVUE 370; Contrast volume: 80 ml; Contrast route: INTRAVENOUS (IV); COMPARISON: CT ANGIO HEAD 12/26/2024 4:11 PM FINDINGS: Right common carotid artery: Calcification of the distal right common carotid artery. Stenosis measures 50%. Right internal carotid artery: Calcification and plaquing of the proximal right internal carotid artery. Stenosis measures less than 50%. Right external carotid artery: No occlusion or stenosis of the origin. Left common carotid artery: Atheromatous irregularity involving the left common carotid artery with mild calcification. No significant stenosis. Left internal carotid artery: Calcification atheromatous plaquing at the proximal left internal carotid artery. Stenosis measures less than 50%. Left external carotid artery: No occlusion or stenosis of the origin. Right vertebral artery: Right vertebral artery is dominant. Left vertebral artery: No stenosis. No dissection or occlusion. Aorta: Aortic calcification. Soft tissues: Normal. No significant soft tissue swelling. Bones/joints: Degenerative change involving the spine. IMPRESSION: 1. 50% stenosis at the right common carotid bifurcation. 2. Stenosis of both proximal ICAs measures less than 50%. REFERENCES: NASCET CRITERIA. The degree of stenosis in the cervical segment of the internal carotid artery is based on NASCET criteria. Normal is no stenosis. Mild is less than 50% stenosis. Moderate is 50-69% stenosis. Severe is 70% to 99% stenosis. Total occlusion is no detectable patent lumen.
--- NOTE | 2024-12-26 15:54 | CT_ITS ---
PROCEDURE INFORMATION: Exam: CTA Head With Contrast, Arteriography Exam date and time: 12/26/2024 4:11 PM Age: 79 years old Clinical indication: Other: Lightheaded, presyncope TECHNIQUE: Imaging protocol: Computed tomographic angiography of the head with contrast. Exam focused on the arteries. 3D rendering (Not supervised by radiologist): MIP and/or 3D reconstructed images were created by the technologist. Radiation optimization: All CT scans at this facility use at least one of these dose optimization techniques: automated exposure control; mA and/or kV adjustment per patient size (includes targeted exams where dose is matched to clinical indication); or iterative reconstruction. Contrast material: ISOVUE 370; Contrast volume: 80 ml; Contrast route: INTRAVENOUS (IV); COMPARISON: CT HEAD/BRAIN WO CON 12/26/2024 4:11 PM FINDINGS: ANTERIOR CIRCULATION: Right internal carotid artery: Calcification involving the right carotid siphon without definite significant stenosis. Right middle cerebral artery: No occlusion or significant stenosis. No aneurysm. Right anterior cerebral artery: No occlusion or significant stenosis. No aneurysm. Left internal carotid artery: Calcification involving the left carotid siphon without significant stenosis. Left middle cerebral artery: No occlusion or significant stenosis. No aneurysm. Left anterior cerebral artery: No occlusion or significant stenosis. No aneurysm. POSTERIOR CIRCULATION: Right vertebral artery: Right vertebral artery is dominant. 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 Basilar artery: Moderate basilar artery stenosis. Right posterior cerebral artery: Moderate right TYPE COPY EXAMINER P2 stenosis. Left posterior cerebral artery: No occlusion or significant stenosis. No aneurysm. IMPRESSION: 1. Moderate right TYPE COPY EXAMINER P2 stenosis. 2. Moderate basilar artery stenosis. 3. No large vessel occlusion.
--- NOTE | 2024-12-26 15:54 | CT_ITS ---
PROCEDURE INFORMATION: Exam: CTA Chest With Contrast Exam date and time: 12/26/2024 4:16 PM Age: 79 years old Clinical indication: Other: Presyncope, lightheaded, elevated dimer TECHNIQUE: Imaging protocol: Computed tomographic angiography of the chest with contrast. Exam focused on the arteries. 3D rendering (Not supervised by radiologist): MIP and/or 3D reconstructed images were created by the technologist. Radiation optimization: All CT scans at this facility use at least one of these dose optimization techniques: automated exposure control; mA and/or kV adjustment per patient size (includes targeted exams where dose is matched to clinical indication); or iterative reconstruction. Contrast material: ISOVUE 370; Contrast volume: 75 ml; Contrast route: INTRAVENOUS (IV); COMPARISON: CR XR CHEST 2V 11/06/2024 11:18 AM FINDINGS: Limitations: Patient respiratory motion. Pulmonary arteries: No convincing evidence of pulmonary embolus. Aorta: Aortic calcification without aneurysm or dissection. Lungs: There are bilateral posterior dependent hypoventilatory changes. No airspace consolidation to indicate pneumonia. Pleural spaces: Unremarkable. No pneumothorax. No pleural effusion. Heart: Unremarkable. No cardiomegaly. No pericardial effusion. Coronary arteries: Coronary artery calcification. Lymph nodes: Unremarkable. No enlarged lymph nodes. Liver: Hepatic steatosis. Bones/joints: Degenerative change involving the spine. Soft tissues: Bilateral gynecomastia. IMPRESSION: 1. No evidence of pulmonary embolus or other acute abnormality involving the chest. 2. Non emergent findings as above.
--- NOTE | 2024-12-26 15:54 | CT_ITS ---
PROCEDURE INFORMATION: Exam: CT Head Without Contrast Exam date and time: 12/26/2024 4:11 PM Age: 79 years old Clinical indication: Other: Lightheaded, presyncope TECHNIQUE: Imaging protocol: Computed tomography of the head without contrast. Radiation optimization: All CT scans at this facility use at least one of these dose optimization techniques: automated exposure control; mA and/or kV adjustment per patient size (includes targeted exams where dose is matched to clinical indication); or iterative reconstruction. COMPARISON: CT ANGIO HEAD 12/26/2024 4:11 PM FINDINGS: Brain: Intracranial vascular calcification. Decreased attenuation of the supratentorial white matter is likely secondary to chronic microvascular ischemia. No acute intracranial hemorrhage. Cerebral ventricles: Ventricular and subarachnoid spaces are age appropriate. Paranasal sinuses: Visualized sinuses are unremarkable. No fluid levels. Mastoid air cells: Visualized mastoid air cells are well aerated. Bones: Unremarkable. No acute fracture. Soft tissues: Unremarkable. IMPRESSION: No acute intracranial abnormality.
[2024-12-26] MEDS: LACTATED RINGERS 1000ML 1,000 ML 999 ML IV (15:57)
[2024-12-26 16:00] LABS: NT Pro Brain Natriuretic Pep. < 20.0 pg/mL (0-450); Troponin I < 0.01 ng/ml (0.00-0.034)
[2024-12-26 16:04] LABS: T4 (Thyroxine) 10.4 ug/dl (5.53-11.0)
[2024-12-26] MEDS: 0.9 % SODIUM CHLORIDE 50 ML VIAL IV (16:16)
[2024-12-26] MEDS: IOPAMIDOL-370 (76%);100ML BOTTLE 155 ML IV (16:16)
[2024-12-26] MEDS: SODIUM CHLORIDE 0.9% 10ML SYR (RAD ONLY) 10 ML IV (16:16)
[2024-12-26 16:18] LABS: Thyroid Stimulating Hormone 4.35 uIU/mL (0.465-4.68)
[2024-12-26 16:29] LABS: HIV Combo NEGATIVE (Negative)
[2024-12-26 16:34] LABS: Hepatitis C Ab Qual. W/ RFX NEGATIVE (Negative)
== END 2024-12-26 17:51 | disposition home or self-care (01) ==
PROVIDERS: Emergency Provider Emergency Medicine; PCP Family Medicine
DX: R42 Dizziness and giddiness (principal); I67.2 Cerebral atherosclerosis
CPT/HCPCS: 70450; 70496; 70498; 71275; 80053; 82550; 82803; 83735; 83880; 84100; 84436; 84443; 84484; 85025; 85378; 86803; 87389; 93005; 96360; 99285; J7120; Q9967

== ENCOUNTER 2025-02-17 06:16 | Day surgery (SDC) | payer MEDICARE, SELFPAY ==
[2025-02-17] MEDS: PHENYLEPHRINE 2.5% OPHTH SOLN 2ML OP ×3 (06:33→06:34)
[2025-02-17] MEDS: CYCLOPENTOLATE 2% OPHTH SOLN 2ML BOTTLE OP ×3 (06:33→06:34)
[2025-02-17] MEDS: TETRACAINE 0.5% OPTH SOL 15ML OP ×3 (06:33→06:34)
[2025-02-17 06:41] VITALS: BP 147/72; PULSE 78; RESP 18; TEMP 36.6; O2SAT 96; BMI 29.0
[2025-02-17 07:51] VITALS: BP 141/70; PULSE 67; RESP 18; TEMP 36.6; O2SAT 96
[2025-02-17] MEDS: SODIUM CHLORIDE 0.9% 10ML FLUSH SYRINGE 10 ML IV (07:51)
[2025-02-17] MEDS: MIDAZOLAM 2MG/2ML VIAL 1 MG IV (07:51)
[2025-02-17 07:56] VITALS: BP 127/65; PULSE 66; RESP 18; TEMP 36.6; O2SAT 95
[2025-02-17 08:01] VITALS: BP 134/75; PULSE 67; RESP 18; TEMP 36.6; O2SAT 95
[2025-02-17] MEDS: TIMOLOL 0.5% OPTH SOLN 5ML OP (08:02)
[2025-02-17] MEDS: LIDOCAINE 1% PF 2ML AMPULE 2 ML IJ (08:03)
[2025-02-17] MEDS: TOBRAMYCIN/DEX OPTH SUSP 2.5ML OP (08:03)
[2025-02-17 08:06] VITALS: BP 124/69; PULSE 65; RESP 18; TEMP 36.6; O2SAT 95
[2025-02-17 08:15] VITALS: BP 123/76; PULSE 68; RESP 16; TEMP 36.1; O2SAT 96
== END 2025-02-17 08:25 | disposition home or self-care (01) ==
PROVIDERS: PCP Family Medicine; Visit Provider Ophthalmology
PROC: (CPT 66984; principal; 2025-02-17 07:30)
DX: H26.9 Unspecified cataract (principal)
CPT/HCPCS: 66984; J2250; V2632

== ENCOUNTER 2025-03-03 06:08 | Day surgery (SDC) | payer MEDICARE, SELFPAY ==
[2025-03-03] VITALS (7 sets, daily range): BP systolic 124–156; BP diastolic 70–78; PULSE 71–82; RESP 16–18; TEMP 36.1–36.6; O2SAT 95–97; BMI 29.0
[2025-03-03] MEDS: TETRACAINE 0.5% OPTH SOL 15ML OP ×3 (06:30→06:40)
[2025-03-03] MEDS: CYCLOPENTOLATE 2% OPHTH SOLN 2ML BOTTLE OP ×3 (06:30→06:40)
[2025-03-03] MEDS: PHENYLEPHRINE 2.5% OPHTH SOLN 2ML OP ×3 (06:30→06:40)
[2025-03-03] MEDS: MIDAZOLAM 2MG/2ML VIAL 1 MG IV (08:30)
[2025-03-03] MEDS: SODIUM CHLORIDE 0.9% 10ML FLUSH SYRINGE 10 ML IV (08:30)
[2025-03-03] MEDS: TIMOLOL 0.5% OPTH SOLN 5ML OP (08:40)
[2025-03-03] MEDS: TOBRAMYCIN/DEX OPTH SUSP 2.5ML OP (08:40)
[2025-03-03] MEDS: LIDOCAINE 1% PF 2ML AMPULE 2 ML IJ (08:41)
--- NOTE | 2025-03-03 12:33 | P.PCN_ITS ---
[facility] Procedure Note Date: 03/03/25 Time: 12:33 Procedure Note:: Preoperative Diagnosis: Cataract combined NS Cortical Complex [Left] Eye Postop diagnosis: same Operation: Microscopic phacoemulsification with intraocular lens implant [Left] Eye Specimen: None Blood Loss: None The patient was examined in the office with a complaint of poor vision in the [left] eye. The patient reports that this interferes with ADLs such as reading, watching TV and/or driving or the vision is like looking through a foggy haze and is very troubling. The patient was examined and found to have a visually significant cataract with best corrected vision of [20/400] by refraction and/or glare testing. Treatment options, risks and benefits were explained and the patient elected to have cataract surgery in an attempt to improve their vision. The patient had the eye anesthetized with topical tetracaine, the eye ways prepped and draped in the usual fashion for cataract surgery. A paracentesis and a temporal keratotomy were made. 0.2cc of 1% lidocaine PF was placed into the anterior chamber. And aqueous/viscoelastic exchange was done and a 360 degree capsulorexis was performed. Through hydrodissection and delineation with BSS on a cannula was done. The lens nucleus was phecoemulsified with CDE of [6.73]. Residual cortical material was removed using automated I&A The capsular bag was deepened with viscoelastica and a PCIOL was placed in the capsular bag with good centration and stability. Residual viscoelastic was removed using automated I&A. The keratotomy incision was hydrated with BSS on a cannula. The wound were checked and found to be water tight. IOP was checked digitally and adjusted as needed so as not to be too high. 1 drop of timolol 0.5%, ofloxacin, prednisolone acetate and ketorolac was instilled and eye shield taped over the eye. The patient was taken to recovery in good condition and will be seen postoperatively.
== END 2025-03-03 09:03 | disposition home or self-care (01) ==
PROVIDERS: PCP Family Medicine; Visit Provider Ophthalmology
PROC: (CPT 66984; principal; 2025-03-03 07:30)
DX: H25.812 Combined forms of age-related cataract, left eye (principal)
CPT/HCPCS: 66984; J2250; V2632